=== PATIENT | female | born 1975 | race Caucasian/White ===

== ENCOUNTER 2017-12-20 20:52 | Emergency (ER) | payer BC, MEDICAID ==
[2017-12-20 21:08] VITALS: BP 127/76
--- NOTE | 2017-12-20 21:21 | EDM.PDOC ---
ED HPI GENERAL MEDICAL PROBLEM - General Chief Complaint: Upper Extremity Injury/Pain Stated Complaint: shoulder pain Time Seen by Provider: 12/20/17 21:10 Source of Information: Reports: Patient History Limitations: Reports: No Limitations - History of Present Illness INITIAL COMMENTS - FREE TEXT/NARRATIVE: This 42 yo female patient reports to the ED with right shoulder pain. The patient reports she had rotator cuff surgery in October of this year. Today, the patient was lifting up her niece when her right shoulder "totally gave out" . The patient reports she continues to have pain in her shoulder (rated at a 5/ 10 at rest). The patient describes her pain as a burning in the shoulder. Onset: Today Duration: Minutes:, Constant Location: Reports: Upper Extremity, Right Quality: Reports: Ache, Burning, Dull Severity: Moderate Improves with: Reports: Rest Worsens with: Reports: Movement Context: Reports: Lifting Associated Symptoms: Reports: No Other Symptoms Right Shoulder Pain Score (Numeric/FACES): 5 - Related Data Allergies Allergy/AdvReac Type Severity Reaction Status Date / Time amoxicillin Allergy Anaphylactic Verified 12/20/17 21:08 Shock cephalexin Allergy Rash Verified 12/20/17 21:08 codeine Allergy Tachycardia Verified 12/20/17 21:08 erythromycin base Allergy Anaphylactic Verified 12/20/17 21:08 Shock levofloxacin [From Levaquin] Allergy Anaphylactic Verified 12/20/17 21:08 Shock Penicillins Allergy Anaphylactic Verified 12/20/17 21:08 Shock Sulfa (Sulfonamide Allergy Rash Verified 12/20/17 21:08 Antibiotics) Home Meds: Home Meds Phentermine HCl 37.5 mg PO ASDIRECTED 09/06/16 [History] Hydrocodone/Acetaminophen [[place] 10-325 Tablet] 1 - 2 tab PO Q4H PRN #80 tablet 11/06/17 [Rx] Ketorolac Tromethamine 10 mg PO Q6H PRN #20 tablet 11/06/17 [Rx] Ibuprofen 200 mg PO Q6HR PRN 12/20/17 [History] Past Medical History HEENT History: Reports: Other (See Below) Other HEENT History: wears contacts/glasses Cardiovascular History: Reports: None Respiratory History: Reports: None Gastrointestinal History: Reports: Celiac Disease Genitourinary History: Reports: None [employer] History: Reports: Musculoskeletal History: Reports: Arthritis, Fracture Other Musculoskeletal History: hx of fx toe, hand, foot, fingers Neurological History: Psychiatric History: Reports: None Endocrine/Metabolic History: Reports: None Hematologic History: Reports: Blood Transfusion(s) Other Hematologic History: hx following vaginal delivery for post bleed Immunologic History: Reports: None Oncologic (Cancer) History: Reports: None Dermatologic History: Reports: None - Past Surgical History Head Surgeries/Procedures: Reports: None HEENT Surgical History: Reports: Tonsillectomy Female Surgical History: Reports: Hysterectomy, Tubal Ligation Other Female Surgeries/Procedures: breast augmenta, hysterectomy, tubal ligation Musculoskeletal Surgical History: Reports: Arthroscopic Knee, ORIF, Shoulder Surgery Other Musculoskeletal Surgeries/Procedures:: hx shoulder surgery (RTCR) and knee arthroscopy x8 ORIF right great toe and right hand (has hardware) Social & Family History - Family History Neurological: Reports: Cerebral Aneurysms - Tobacco Use Smoking Status *Q: Current Every Day Smoker Years of Tobacco use: 20 Packs/Tins Daily: 5 Month Tobacco Last Used: smokes approx 5 cigarettes per day - Caffeine Use Caffeine Use: Reports: Coffee Caffeine Use Comment: 4 cups daily - Recreational Drug Use Recreational Drug Use: No Drug Use in Last 12 Months: No Review of Systems - Review of Systems Review Of Systems: ROS reveals no pertinent complaints other than HPI. ED EXAM, GENERAL - Physical Exam Exam: See Below Exam Limited By: No Limitations General Appearance: Alert, WD/WN, Mild Distress Eye Exam: Bilateral Eye: EOMI, Normal Inspection, PERRL Ears: Normal External Exam, Normal Canal, Hearing Grossly Normal, Normal TMs Nose: Normal Inspection, Normal Mucosa, No Blood Throat/Mouth: Normal Inspection, Normal Lips, Normal Teeth, Normal Gums, Normal Oropharynx, Normal Voice, No Airway Compromise Head: Atraumatic, Normocephalic Neck: Normal Inspection, Supple, Non-Tender, Full Range of Motion Respiratory/Chest: No Respiratory Distress, Lungs Clear, Normal Breath Sounds, No Accessory Muscle Use, Chest Non-Tender Cardiovascular: Normal Peripheral Pulses, Regular Rate, Rhythm, No Edema, No Gallop, No JVD, No Murmur, No Rub (Female) Exam: Deferred Rectal (Female) Exam: Deferred Extremities: Arm Pain (right superior anterior shoulder tenderness to palpation , increased pain with abduction) Neurological: Alert, Oriented, CN II-XII Intact, Normal Cognition, Normal Gait, Normal Reflexes, No Motor/Sensory Deficits Psychiatric: Normal Affect, Normal Mood Skin Exam: Warm, Dry, Intact, Normal Color, No Rash Lymphatic: No Adenopathy Course - Vital Signs Last Recorded V/S: Last Vital Signs Temp 36.2 C 12/20/17 20:59 Pulse 78 12/20/17 20:59 Resp 20 12/20/17 20:59 BP 127/76 12/20/17 20:59 Pulse Ox 100 12/20/17 20:59 - Orders/Labs/Meds Orders: Active Orders 24 hr Category Date Time Status Ketorolac [Toradol] Med 12/20/17 21:39 Once 30 mg IM ONETIME ONE DME for Discharge [COMM] Urgent Oth 12/20/17 21:34 Ordered Medication Orders Ketorolac Tromethamine (Toradol) 30 mg IM ONETIME ONE Stop: 12/20/17 21:40 Meds: Medications Generic Name Dose Route Start Last Admin Trade Name Freq PRN Reason Stop Dose Admin Ketorolac Tromethamine 30 mg 12/20/17 21:39 Toradol IM 12/20/17 21:40 ONETIME ONE Departure - Departure Time of Disposition: 21:41 Disposition: Home, Self-Care 01 Condition: Fair Clinical Impression: Sprain of shoulder Qualifiers: Encounter type: initial encounter Shoulder sprain type: unspecified sprain Laterality: right Qualified Code(s): S43.401A - Unspecified sprain of right shoulder joint, initial encounter - Discharge Information Instructions: Shoulder Sprain, Shoulder Pain, [id number] Forms: ED Department Discharge Care Plan Goals: The patient was advised of the examination and x-ray results during the visit. The patient was placed in a right shoulder immobilizer and given an injection of Toradol while in the ED. The patient was discharged with a script for [place] ( ) #4 to take 1 by mouth every 6 hours as needed for pain. The patient should follow-up with her senior specialist next week as scheduled. If the patient has any additional symptoms or concerns, the patient should visit her senior specialist, her primary care facility or return to the emergency department. - My Orders Last 24 Hours: My Active Orders 12/20/17 21:34 DME for Discharge [COMM] Urgent 12/20/17 21:39 Ketorolac [Toradol] 30 mg IM ONETIME ONE - Assessment/Plan Last 24 Hours: My Active Orders 12/20/17 21:34 DME for Discharge [COMM] Urgent 12/20/17 21:39 Ketorolac [Toradol] 30 mg IM ONETIME ONE
[2017-12-20] MEDS ORDERED: Ketorolac 30 MG/ML SDV IM ONE (21:39)
== END 2017-12-20 22:08 | disposition home or self-care (01) ==
LOC: DL.ED 20:52
DX: S43.401A Unspecified sprain of right shoulder joint, initial encounter (principal); F17.210 Nicotine dependence, cigarettes, uncomplicated; Z88.1 Allergy status to other antibiotic agents; Z88.0 Allergy status to penicillin; Z88.2 Allergy status to sulfonamides; Z88.5 Allergy status to narcotic agent; X50.0XXA Overexertion from strenuous movement or load, initial encounter
CPT/HCPCS: 73030; 99284; J1885